=== PATIENT | male | born 1980 ===

== ENCOUNTER → 2018-01-12 | Outpatient (CLI) | payer MEDICARE ==
[~2018-01-12] MED LIST: DEXTROSE 50% 50 ML SYR IVP PRN; DIALYSIS ACETAMINOPHEN 325 MG PO PRN; HEPARIN (PORCINE) 1000 UNIT/ML (DIALYSIS) IVP PRN; HEPARIN SOD (PORCINE) LOAD IVP PRN; HEPARIN SOD (PORCINE) UNIT/HR IVP PRN; LIDOCAINE/SOD BICARB 8.4% SYR ID PRN; LOPERAMIDE HCL 2 MG CAP PO PRN; PROMETHAZINE HCL 25 MG TAB PO PRN; diphenhydr DIALYSIS 50 MG/ML IVP PRN
== END ==
LOC: DIAL 08:00
PROVIDERS: ATTEND Internal Medicine Nephrology
DX: N18.6 End stage renal disease (principal); Z99.2 Dependence on renal dialysis; Z88.8 Allergy status to other drugs, medicaments and biological substances
CPT/HCPCS: 90999